=== PATIENT | male | born 1975 | race Caucasian/White ===

== ENCOUNTER 2023-03-11 07:15 | Day surgery (SDC) | payer OTHER ==
[2023-03-11] VITALS (200 sets, daily range): BP systolic 84–147; BP diastolic 40–98
[~2023-03-11] VITALS: Ht 188 cm; Wt 114.0 kg
--- NOTE | 2023-03-11 07:15 | NUR ---
Patient arrived to the ANR suite, identification and demographics confirmed. Patient to room 10, AAO, ambulatory, vitals obtained, ID/allergy/fall bands placed, changed into hospital gown, DUANE hose, and non-slip socks. Procedure and timeline explained for treatment and discharge. All questions answered and the patient presents no concerns at this time.
--- NOTE | 2023-03-11 07:40 | NUR ---
Dr. Carcamo telephoned with patient intake information including usage, dose, last dose/time taken and initial vital signs. Patient history and allergies reviewed with MD. Orders received for 10 mg PO Valium and 0.2 mg PO Clonidine now. Will reassess per protocol in 1.5 hours and update MD with assessment and vitals.
--- NOTE | 2023-03-11 07:45 | NUR ---
Patient medicated per MD orders. In addition to Clonidine and Valium, patient received 1000 mcg B12 PO, 20 mg Pepcid PO, and Scopolamine TD patch. Medication indication and education provided prior to adminstration.
--- NOTE | 2023-03-11 08:30 | NUR ---
Patient resting comfortably in bed. Easily aroused, maintains focus, and drifts back to sleep. No signs of active withdrawal or distress noted at this time. Continuous SPO2, rhythm, and respiratory monitoring initiated. IVF @ 250 mL/HR, room air, VSS.
[2023-03-11 08:35] LABS: BASO% 0.9 % (0-3); EOS% 3.9 % (0-8); HEMATOCRIT 43.8 % (39.0-50.0); HEMOGLOBIN 14.9 g/dl (14.0-18.0); IMMATURE GRANULOCYTES 1.1 % (0.0-5.0); MEAN CELL VOLUME 90.3 fL CALC (80.0-100.0); MEAN CORPUSCULAR HGB 30.7 pG CALC (26.0-32.0); MONO% 13.4 % (2-13); NEUT# 3.17 thou/uL (1.82-7.42); NEUT% 55.7 % (42-76); RED BLOOD COUNT 4.85 mill/uL (4.70-6.10); RED CELL DISTRI WIDTH 12.1 % (11.5-15.5)
[2023-03-11 09:05] LABS: ALBUMIN 3.8 g/dL (3.2-5.0); ALKALINE PHOSPHATASE 38 u/l (38-126); ANION GAP 10 (6-22 (CALC)); BILIRUBIN, TOTAL 0.6 mg/dL (0.2-1.3); BUN 12 mg/dL (9-20); BUN/CREATININE RATIO 12 (12-20 (CALC)); CARBON DIOXIDE 28 mmol/l (22-30); CHLORIDE 101 mmol/l (95-108); GFR FOR AFR.AMER. > 60 ML/MIN (>=60 (CALC)); GFR OTHER RACES > 60 ML/MIN (>=60 (CALC)); POTASSIUM 4.1 mmol/l (3.5-5.1); SGOT/AST 35 u/l (17-59); SODIUM 135 mmol/l (137-146)
--- NOTE | 2023-03-11 09:15 | NUR ---
Patients vital signs within pre-treatment parameters for 1.5 hour recheck. No indication for additional Valium or Clonidine as patient is resting comfortably and vital signs are within range.
[2023-03-11] MEDS ORDERED: KLONOPIN0.5 MG PO (09:40)
[2023-03-11] MEDS ORDERED: ADDERALL30 MG PO (09:40)
--- NOTE | 2023-03-11 10:30 | NUR ---
Patient resting comfortably in bed. Easily aroused, maintains focus, and drifts back to sleep. No signs of active withdrawal or distress noted at this time.
--- NOTE | 2023-03-11 11:25 | NUR ---
Induction Note Patient to ANR procedure room. Time out performed at 1125. Patient placed on monitors, Cande hugger, bilateral wrist restraints applied for ET tube protection. Versed 5mg given IV push at 1125 Tourniquet applied to 1126 arm Lidocaine 100mg given at 1126 IV push followed by Rocoronium 10mg at 1126 IV push and held for 90 seconds. Propofol bolus of 200mg given at 1130 IV push. Succinylcholine 80mg given IV push at 1129. Smooth intubation with 7.5 ETT. Positive CO2. Positive Auscultation for air exchange. Patient placed on ventilator for spontaneous ventilation. Placed on Propofol IV drip at 1130. OG inserted. Positive air on auscultation. Positive gastric content. Stomach washed at this time. Naltrexone 50mg given via OG tube with Clonidine 0.1 mg given via OG Tube. OG clamped for 45 minutes. Will monitor patient for symptoms of withdrawal and adjust propfol accordingly.
--- NOTE | 2023-03-11 11:45 | NUR ---
OG close note Stomach washed at this time. Naltrexone 50 mg with Clonidine 0.1 mg via OG tube. OG will be clamped for 45 minutes.
--- NOTE | 2023-03-11 12:30 | NUR ---
OG open note OG open at this time. Gastric content draining into drainage bag. OG to drain for 45 minutes. Propofol will be titrated down based on patient.
--- NOTE | 2023-03-11 13:30 | NUR ---
OG close note Stomach washed at this time. Naltrexone 50 mg with Clonidine 0.3 mg via OG tube. OG will be clamped for 45 minutes.
--- NOTE | 2023-03-11 14:15 | NUR ---
OG close note Stomach washed at this time. Naltrexone 50 mg with Clonidine 0.1 mg via OG tube. OG will be clamped for 45 minutes.
[2023-03-11] MEDS ORDERED: NALTREXONE50 MG PO (14:52)
[2023-03-11] MEDS ORDERED: CLONIDINE0.1 MG PO (14:52)
[2023-03-11] MEDS ORDERED: KLONOPIN2 MG PO (14:53)
--- NOTE | 2023-03-11 15:10 | NUR ---
OG close note Stomach washed at this time. Naltrexone 50 mg with Clonidine 0.1 mg via OG tube. OG will be clamped for 45 minutes.
--- NOTE | 2023-03-11 16:50 | NUR ---
OG close note Stomach washed at this time. Naltrexone 12.53 mg with Clonidine ZERO mg via OG tube. OG will be clamped for 45 minutes.
--- NOTE | 2023-03-11 17:23 | NUR ---
Extubation note Closing medications given Benadryl 50mg IV push, Decadron 10mg IV push,Magnesium 4 grams IV, Zofran 8mg IV push, Octreotide 100mcg SC. Stomach washed out prior to extubation. Suctioned gastric content. OG removed. Patient extubated. Propofol Discontinued. Wrist restraints removed. Cande hugger Removed. See ANR Moderate sedate recovery record for further notes and assessment.
--- NOTE | 2023-03-11 17:53 | NUR ---
Patient transferred to medical-surgical unit room 283. Report given to shari Gipson at bedside. Head to toe assessment, treatment, medications, I/O, IV access reviewed with RN. All questions answered. IVF to continue at 100 ml/hr, NC @ 4L, no adventitious breath sounds. Safety precautions in place, bed locked and in lowest position, call light in reach. Handoff of care at the time this note.
--- NOTE | 2023-03-11 18:36 | NUR ---
PT TO MED SURG FROM ANR , REPORT RECIEVED FROM NURSE. PT IS DROWSY AWAKENED TO VERBAL STIMULI. ALERT TO SELF AT THIS TIME WITH GARBELED SPEECH. IV SITE # 20 TO RH AND #20 TO LEFT WRIST CLEAN AND INTACT WITH LR @ 100 ML/HR INFUSING. PT HAS URINAL AT BEDSIDE FOR TOILETING NEEDS AT THIS TIME. VSS. PT HAS CALL LIGHT WIHTIN REACH AND ALL SAFETY MEASURES IN PLACE AT THIS TIME.
--- NOTE | 2023-03-11 20:00 | NUR ---
RECEIVED REPORT FROM NURSE RANI, PATIENT RESTING IN BED, DROWSY, PATIENT ON 02 @ 2LPM VIA NC, S/P ANR PROCEDURE, IV ON RT HAND G 22 PATENT FLUSHES WELL AND 20 ON LT WRIST LR AT 100CC/HR INFUSING WELL, LUNG SOUNDS CLEAR NOT IN DISTRESS, BED ALARM IN PLACE.
--- NOTE | 2023-03-11 21:17 | NUR ---
PATIENT C/O SEVERE ANXIETY, AND PAIN ON LOWER BACK, PRN ATIVAN GIVEN AND IV TYLENOL.
--- NOTE | 2023-03-11 23:50 | NUR ---
PATIENT RESTING IN BED, BREATHING EVEN UNLABORED, REMAINS ON O2 @ 2LPM VIA NC, NOT IN DISTRESS,DENIES PAIN AT THIS TIME, CALL LIGHT IN REACH.
--- NOTE | 2023-03-12 02:51 | NUR ---
PATIENT C/O ANXIETY, PRN ATIVAN 1MG GIVEN.
[2023-03-12 04:00] VITALS: BP 126/67
--- NOTE | 2023-03-12 04:31 | NUR ---
PATIENT RESTING IN BEDM NOT IN DISTRESS, REMAINS ON O2 @ 2LPM VIA NC, NOT IN DISTRESS, BED ALARM IN PLACE.
[2023-03-12 06:42] LABS: IMMATURE GRANULOCYTES 0.9 % (0.0-5.0); LYMPH% 7.5 % (15-41); MEAN CELL VOLUME 89.8 fL CALC (80.0-100.0); MEAN CORPUSCULAR HGB 31.1 pG CALC (26.0-32.0); MEAN CORPUSCULAR HGB CONC 34.6 g/dL CAL (32.0-36.0); MONO% 5.6 % (2-13); NEUT# 7.71 thou/uL (1.82-7.42); RED BLOOD COUNT 4.12 mill/uL (4.70-6.10); RED CELL DISTRI WIDTH 11.8 % (11.5-15.5)
[2023-03-12 06:53] LABS: ALBUMIN 3.6 g/dL (3.2-5.0); ALKALINE PHOSPHATASE 44 u/l (38-126); ANION GAP 12 (6-22 (CALC)); BILIRUBIN, TOTAL 0.6 mg/dL (0.2-1.3); BUN 12 mg/dL (9-20); BUN/CREATININE RATIO 14 (12-20 (CALC)); CARBON DIOXIDE 24 mmol/l (22-30); CHLORIDE 108 mmol/l (95-108); CREATININE 0.8 mg/dL (0.7-1.3); GFR FOR AFR.AMER. > 60 ML/MIN (>=60 (CALC)); GFR OTHER RACES > 60 ML/MIN (>=60 (CALC)); MAGNESIUM 2.1 mg/dL (1.6-2.3); SGOT/AST 31 u/l (17-59); SODIUM 140 mmol/l (137-146); TOTAL PROTEIN 6.4 g/dL (6.3-8.2)
[2023-03-12 06:57] LABS: HEMOGLOBIN 12.8 g/dl (14.0-18.0)
[2023-03-12 07:30] VITALS: BP 123/65
--- NOTE | 2023-03-12 08:00 | NUR ---
PT IN BED RESTING WITH EYES CLOSED, AWAKENED TO VERBAL STIMULI. PT HAS NO C/O PAIN AT THIS TIME. PT HAS #22 TO RH AND # 20 TO LW WITH LR @ 100 ML/ HR INFUSING. LUNGS CLEAR. BS ACTIVE WITH ABD SOFT. PT AMBULATES WELL TO BATHROOM WITH STANDBY ASSIST. PT SKIN CLEAN AND INTACT. PT HAS CALL LIGHT WITHIN REACH AND ALL SAFETY MEASURES IN PLACE AT THIS TIME.
[2023-03-12 08:38] VITALS: BP 126/67
--- NOTE | 2023-03-12 09:50 | NUR ---
PT VOMITING SMALL AMOUNT OF EMESIS, CLEAR IN COLOR. PT C/O NAUSEA. ZOFRAN 4 MG GIVEN ORDERED PRN. IV SITE TO , NOTED TO HAVE CATHETER OUT OF VEIN, WITH TIP INTACT. PT HAS CALL LIGHT WITHIN REACH AND ALL SAFETY MEASURES IN PLACE AT THIS TIME.
--- NOTE | 2023-03-12 09:55 | NUR ---
Patient's support person (SP) telephoned with overnight update and to begin discharge planning. All questions answered satisfactorily, no concerns presented. SP agreeable to discharge plan.
--- NOTE | 2023-03-12 12:00 | NUR ---
PT IN BED RESTINNG, ALERT AND ORIENTED. PT HAS NO C/O PAIN AT THIS TIME. PT HAS NO C/O N/V AT THIS TIME. PT HAS CALL LIGHT WITHIN REACH AND ALL SAFETY MEASURES IN PLACE AT THIS TIME.
--- NOTE | 2023-03-12 13:28 | NUR ---
Dr. Carcamo at bedside and updated with overnight events and PRN medications, morning labs and vital signs, ANR inspecting machine adjustersales account coordinator and current progress on discharge requirements. Expected discharge today. Discharge plan in progress. Patient's support person (SP) telephoned with update and to arrange a discharge time. All questions answered, no concerns presented at this time. SP agreeable to discharge POC.
--- NOTE | 2023-03-12 15:20 | NUR ---
Patient discharged from ANR treatment in stable condition. All ANR discharge criteria have been met. Patient and SP educated at length on post-procedure care, medication indication/administration, and follow-up care. All questions answered, patient and SP state understanding of discharge and medication information. Naltrexone, Klonopin, and Clonidine prescriptions given to Briana ().
== END 2023-03-12 15:14 | disposition home or self-care (01) | DRG 897 ==
LOC: MS2 07:15 → ANR 07:15
PROVIDERS: ATTEND Anesthesiology Critical Care Medicine
DX: F11.20 Opioid dependence, uncomplicated (principal)
CPT/HCPCS: J0131; J2060; J2354; J3475

== ENCOUNTER 2024-06-09 04:00 | Day surgery (SDC) | payer OTHER ==
[2024-06-09] VITALS (185 sets, daily range): BP systolic 93–152; BP diastolic 55–113
[~2024-06-09] VITALS: Ht 188 cm; Wt 113.2 kg
[~2024-06-09 04:00] MED LIST: ADDERALL30 MG PO; CLONIDINE0.1 MG PO; KLONOPIN0.5 MG PO; KLONOPIN2 MG PO; NALTREXONE50 MG PO
--- NOTE | 2024-06-09 07:00 | NUR ---
Arrival & Pre-treatment Patient arrived to the ANR suite, identification and demographics confirmed. Patient to room 7, AAO, ambulatory, vitals obtained, ID/allergy/fall bands placed, changed into hospital gown, DUANE hose, and non-slip socks. Procedure and timeline explained for treatment and discharge. All questions answered and the patient presents no concerns at this time. V/S assessed, call light is near. Dr. Kent telephoned with patient intake information including usage, dose, last dose/time taken and initial vital signs. Patient history and allergies reviewed with MD. Orders received for 10mg PO Valium and 0.2mg PO Clonidine now. Will reassess per protocol and update MD with assessment and vitals.
[2024-06-09] MEDS ORDERED: ALBUTEROL SULFATE 2.5 MG VIAL IN PRN (07:30)
[2024-06-09] MEDS ORDERED: SCOPOLAMINE 1.5 MG DIS TD PRN (07:30)
[2024-06-09] MEDS ORDERED: diazePAM 5 MG/TAB PO PRN ×2 (07:30→08:30)
[2024-06-09] MEDS ORDERED: LACTATED RINGER'S 1,000 ML IV PRN ×3 (07:30→19:00)
[2024-06-09] MEDS ORDERED: CYANOCOBALAMIN 500 MCG/TAB ( B12) PO PRN (07:30)
[2024-06-09] MEDS ORDERED: PANTOPRAZOLE SODIUM Sesquihydr 40 MG/TAB PO PRN (07:30)
[2024-06-09] MEDS ORDERED: cloNIDine HCL 0.1 MG/TAB PO PRN (07:30)
[2024-06-09] MEDS ORDERED: FAMOTIDINE 20 MG/TAB PO PRN (07:30)
[2024-06-09] MEDS ORDERED: ASCORBIC ACID 4,000 MG in SODIUM CHLORIDE 0.9% 1,000 ML IV SCH (08:00)
--- NOTE | 2024-06-09 09:00 | NUR ---
Patients vital signs within pre-treatment parameters for 1.5 hour recheck. No indication for additional Valium or Clonidine as patient is resting comfortably and vital signs are within range.
[2024-06-09 09:12] LABS: BASO% 0.8 % (0-3); EOS% 3.7 % (0-8); IMMATURE GRANULOCYTES 0.6 % (0.0-5.0); LYMPH% 25.6 % (15-41); MEAN CELL VOLUME 90.6 fL CALC (80.0-100.0); MEAN CORPUSCULAR HGB 31.5 pG CALC (26.0-32.0); MEAN CORPUSCULAR HGB CONC 34.7 g/dL CAL (32.0-36.0); MONO% 13.4 % (2-13); NEUT# 2.83 thou/uL (1.82-7.42); NEUT% 55.9 % (42-76); RED BLOOD COUNT 5.02 mill/uL (4.70-6.10); RED CELL DISTRI WIDTH 12.3 % (11.5-15.5)
[2024-06-09 09:41] LABS: ALBUMIN 4.1 g/dL (3.2-5.0); BILIRUBIN, TOTAL 0.7 mg/dL (0.2-1.3); CREATININE 0.9 mg/dL (0.7-1.3); POTASSIUM 4.4 mmol/l (3.5-5.1); TOTAL PROTEIN 6.9 g/dL (6.3-8.2)
[2024-06-09] MEDS ORDERED: CIALIS10 MG PO (09:41)
[2024-06-09] MEDS ORDERED: STERILE WATER FOR IRRIGATION 1,000 ML BTL IR PRN (10:00)
[2024-06-09] MEDS ORDERED: DiphenhydrAMINE HCL 50 MG/ML SDV IV PRN (10:00)
[2024-06-09] MEDS ORDERED: diazePAM 5 MG/TAB VT PRN (10:00)
[2024-06-09] MEDS ORDERED: POTASSIUM CHLORIDE 10 MEQ/50 ML BAG IV PRN (10:00)
[2024-06-09] MEDS ORDERED: OCTREOTIDE ACETATE 100 MCG/VIAL SDV SC PRN (10:00)
[2024-06-09] MEDS ORDERED: SUCCINYLCHOLINE CHLORIDE 20 MG/ML 10ML VIAL IV PRN (10:00)
[2024-06-09] MEDS ORDERED: PROPOFOL 10 MG/ML 100ML VIAL IV PRN (10:00)
[2024-06-09] MEDS ORDERED: PROPOFOL 100 ML IV PRN (10:00)
[2024-06-09] MEDS ORDERED: MAGNESIUM SULFATE HEPTAHYDRATE 100 ML IV PRN (10:00)
[2024-06-09] MEDS ORDERED: LIDOCAINE HCL 1% (10MG/ML) 100 MG/10 ML MDV IV PRN (10:00)
[2024-06-09] MEDS ORDERED: LIDOCAINE HCL 1% (10MG/ML) 100 MG/10 ML MDV VT PRN ×2 (10:00)
[2024-06-09] MEDS ORDERED: ONDANSETRON HCl 4 MG/2 ML SDV IV PRN ×3 (10:00→19:00)
[2024-06-09] MEDS ORDERED: cloNIDine HYDROCHLORIDE 100 MCG/ML 10 ML INJ IV PRN (10:00)
[2024-06-09] MEDS ORDERED: ROCURONIUM BROMIDE 10 MG/ML 5ML VIAL IV PRN (10:00)
[2024-06-09] MEDS ORDERED: MIDAZOLAM HCL 2 MG/2 ML VIAL IV PRN (10:00)
[2024-06-09] MEDS ORDERED: NALTREXONE HCL 50 MG/TAB VT PRN (10:00)
[2024-06-09] MEDS ORDERED: cloNIDine HCL 0.1 MG/TAB VT PRN (10:00)
[2024-06-09] MEDS ORDERED: DEXAMETHASONE SODIUM PHOSPHATE PF 10 MG/ML SDV IV PRN ×2 (10:00→19:00)
[2024-06-09] MEDS ORDERED: THIAMINE HCL 100 MG/ML 2ML VIAL IV PRN (10:00)
[2024-06-09 10:03] LABS: HEMATOCRIT 45.5 % (39.0-50.0); HEMOGLOBIN 15.8 g/dl (14.0-18.0)
--- NOTE | 2024-06-09 11:05 | NUR ---
Induction Note Time out performed at . Patient placed on monitors, Cande hugger, bilateral wrist restraints applied for ET tube protection. Versed 5mg given IV push at 1122 Tourniquet applied to LT arm Lidocaine 100mg given at 1123 IV push followed by Rocoronium 10mg at 1124 IV push and held for 90 seconds. Propofol bolus of 130mg given at 1126 IV push. Succinylcholine 80mg given IV push at 1127. Smooth intubation with 7.5 ETT. Positive CO2. Positive Auscultation for air exchange. Patient placed on ventilator for spontaneous ventilation. Placed on Propofol IV drip at 1128. OG inserted. Positive air on auscultation. Positive gastric content. Stomach washed at this time.
--- NOTE | 2024-06-09 11:40 | NUR ---
OG close note Stomach washed at this time. Naltrexone 50 mg with Clonidine 0.2 mg via OG tube. OG will be clamped for 45 minutes.
[2024-06-09] MEDS ORDERED: clonazePAM 1 MG/TAB PO PRN (12:10)
--- NOTE | 2024-06-09 12:25 | NUR ---
OG open note OG open at this time. Gastric content draining into drainage bag. OG to drain for 45 minutes. Propofol will be titrated down based on patient.
[2024-06-09] MEDS ORDERED: CLONIDINE0.1 MG PO (12:26)
[2024-06-09] MEDS ORDERED: NALTREXONE50 MG PO (12:26)
[2024-06-09] MEDS ORDERED: KLONOPIN0.5 MG PO (12:29)
--- NOTE | 2024-06-09 13:10 | NUR ---
OG close note Stomach washed at this time. Naltrexone 50 mg with Clonidine 0.2 mg via OG tube. OG will be clamped for 45 minutes.
--- NOTE | 2024-06-09 14:40 | NUR ---
OG close note Stomach washed at this time. Naltrexone 50 mg with Clonidine 0.2 mg via OG tube. OG will be clamped for 45 minutes.
--- NOTE | 2024-06-09 17:11 | NUR ---
Transfer Note Patient transferred to medical-surgical unit private room. Report given to primary nurse at bedside. Head to toe assessment, treatment, medications, I/O, IV access reviewed with primary nurse. All questions answered. IVF to continue at 100 ml/hr, NC @ 2L, no adventitious breath sounds. Safety precautions in place, bed locked and in lowest position, call light in reach. Handoff of care complete at this time.
--- NOTE | 2024-06-09 17:30 | NUR ---
Patient's support person (SP) telephoned with update. All questions answered, no concerns presented at this time. SP agreeable to POC.
--- NOTE | 2024-06-09 17:44 | NUR ---
patient arrived to ms from anr bedside report from christen; patient on 2l pf 02' breathing unlabored and even; patinet had a bowel movement had to change with computer networking instructor adjunct; no s.s of distress at this time; iv site clean and intact running with LR @100; peronal items in anr locked; bed in lowest postion; saftey measures in place
[2024-06-09] MEDS ORDERED: PROMETHAZINE HCL 12.5 MG in SODIUM CHLORIDE 0.9% 50 ML IV PRN (19:00)
[2024-06-09] MEDS ORDERED: LORazepam 2 MG/ML IV PRN ×2 (19:00)
[2024-06-09] MEDS ORDERED: ACETAMINOPHEN 1,000 MG/100 ML VIAL IV PRN (19:00)
[2024-06-09] MEDS ORDERED: HALOPERIDOL LACTATE 5 MG/ML SDV IV PRN (19:00)
[2024-06-09] MEDS ORDERED: ACETAMINOPHEN 500 MG TAB PO PRN (19:00)
[2024-06-09] MEDS ORDERED: PROMETHAZINE HCL 25 MG in SODIUM CHLORIDE 0.9% 50 ML IV PRN (19:00)
[2024-06-09] MEDS ORDERED: KETOROLAC TROMETHAMINE 30 MG/ML SDV IV PRN (19:00)
[2024-06-09] MEDS ORDERED: PATIENT' OWN MED CONTROLLED 1 EA DOSE IV PRN (21:00)
[2024-06-09] MEDS ORDERED: cloNIDine HCL 0.1 MG/TAB PO SCH (23:00)
[2024-06-10 03:57] VITALS: BP 142/71
[2024-06-10] MEDS ORDERED: NALTREXONE HCL 50 MG/TAB PO SCH (04:00)
[2024-06-10] MEDS ORDERED: cloNIDine HCL 0.1 MG/TAB PO PRN (04:00)
[2024-06-10] MEDS ORDERED: clonazePAM 1 MG/TAB PO PRN ×2 (04:00→08:00)
--- NOTE | 2024-06-10 04:34 | NUR ---
SCHEDULED MEDS ADMINSITERED PER EMAR, PT TOLERATED WELL. PT AROUSABLE TO SPEECH, ON 2L O2 NC. PT REQUESTED TO USE BATHROOM. MIRROR SILVERER ASSISTED PT, AMBULATED WITH STEADY GAIT. VOIDED WITH OUT DIFFICULTY. AMBUALTED BACK TO BED. PT DENIES ANY N/V/P AT THIS TIME. VSS. IVF RUNNING PER EMAR. NO S/S OF DISTRESS. BED ALARM ON AND SAFETY PRECAUTIONS IN PLACE.
[2024-06-10 04:42] LABS: BASO% 0.1 % (0-3); HEMOGLOBIN 16.9 g/dl (14.0-18.0); IMMATURE GRANULOCYTES 0.3 % (0.0-5.0); LYMPH% 6.8 % (15-41); MEAN CELL VOLUME 91.6 fL CALC (80.0-100.0); MEAN CORPUSCULAR HGB 32.3 pG CALC (26.0-32.0); MEAN CORPUSCULAR HGB CONC 35.2 g/dL CAL (32.0-36.0); MONO% 6.2 % (2-13); NEUT# 8.98 thou/uL (1.82-7.42); NEUT% 86.6 % (42-76); RED BLOOD COUNT 5.24 mill/uL (4.70-6.10); RED CELL DISTRI WIDTH 12.6 % (11.5-15.5)
[2024-06-10 04:58] LABS: ALBUMIN 4.4 g/dL (3.2-5.0); MAGNESIUM 2.5 mg/dL (1.6-2.3); POTASSIUM 4.7 mmol/l (3.5-5.1); TOTAL PROTEIN 7.3 g/dL (6.3-8.2)
[2024-06-10] MEDS ORDERED: cloNIDine HCL 0.1 MG/TAB PO SCH (08:00)
[2024-06-10] MEDS ORDERED: PANTOPRAZOLE SODIUM Sesquihydr 40 MG/TAB PO SCH (08:00)
[2024-06-10] MEDS ORDERED: ACETAMINOPHEN 325 MG/TAB PO SCH (08:00)
[2024-06-10 08:04] VITALS: BP 136/74
--- NOTE | 2024-06-10 08:45 | NUR ---
PATIENT A.O X3 ROOM AIR; BREATHING UNLABORED AND EVEN; DENIDD ANY PAIN; DNIED ANY N/D/V AT [facility] STIME; NO S.S OF DISTRESS AT THIS TIME; IV SITE CLEAN AND INTACT SALINE LOCKED; PATIENT TOOK SHOWER WITH NO ISSUES; WITH STEADY GAIT; ENCOURAGED PATIENT TO EAT BREAKFAST; TOELRATED HIS MEDICATION; CALL LIGHT WITHIN RECH, BED IN LOWEST POSTION; SAFETY MEASURES IN PLACE; PERSONAL ITEMS IN ANR LOCKER
[2024-06-10] MEDS ORDERED: Cholecalciferol 2,000 UNIT/TAB PO PRN (09:00)
[2024-06-10] MEDS ORDERED: ACETAMINOPHEN 500 MG TAB PO PRN (09:00)
[2024-06-10] MEDS ORDERED: MAGNESIUM OXIDE 400 MG/TAB PO PRN (09:00)
--- NOTE | 2024-06-10 10:43 | NUR ---
patient ambulated down hallway with no issues or assst; went to the bathroom with no issues; no complaints
--- NOTE | 2024-06-10 12:27 | NUR ---
patient currently taking another shower; personal items within reach; iv sites clean and intact saline locked with no issues; denied any pain; denied any n/.d/v at this time; tolerated little lunch; tolerated his discharge medications with no issues; safety measures in place
--- NOTE | 2024-06-10 13:20 | NUR ---
IV site discontinued, cath intact. No edema , no redness, voices no discomfort. Discharge instructions given. Patient verbalizes understanding of same. Discharged in stable condition via Ambulatory to Home with family. All belongings sent with pt.
== END 2024-06-10 13:17 | disposition home or self-care (01) | DRG 897 ==
LOC: MS2 04:00 → ANR 04:00
PROVIDERS: ATTEND Anesthesiology
DX: F11.20 Opioid dependence, uncomplicated (principal)
CPT/HCPCS: J1100; J2354; J3475